=== PATIENT | male | born 1970 | race Caucasian/White ===

== ENCOUNTER 2017-06-26 09:29 | Emergency (ER) | payer OTHER ==
[~2017-06-26] VITALS: Ht 167.6 cm; Wt 78.0 kg
[2017-06-26 09:35] VITALS: Ht 167.6 cm; Wt 78.0 kg
[2017-06-26] MEDS ORDERED: METHYLPREDNISOLONE 125 MG INJ IM ONE (10:30)
[2017-06-26] MEDS ORDERED: DIPHENHYDRAMINE 25 MG CAP PO ONE (10:30)
[2017-06-26] MEDS ORDERED: FAMOTIDINE 20 MG TAB PO ONE (10:30)
[2017-06-26] MEDS ORDERED: AMOX1TAB10 PO (11:03)
[2017-06-26] MEDS ORDERED: BEN25 PO (11:03)
[2017-06-26] MEDS ORDERED: PRED20TA PO (11:03)
--- NOTE | 2017-06-26 11:48 | ERD ---
ER Documentation Chief Complaint Chief Complaint PT with L eye swelling since last night, denies SOB. HPI 46-year-old male patient with no significant past medical history presents to the ED complaining of a left swollen eye and itchiness that started last night. States that his throat is also itchy but denies any dysphagia or odynophagia. Denies any fever, chills, nausea, vomiting, diarrhea, shortness of breath, chest pain. Denies taking any medications. Denies eating any new foods. States that he is allergic to pork but did not eat pork yesterday. Denies others having the same rash. Denies being bitten by an insect or spider. Denies any eye pain, vision loss, blurred vision, diplopia. No purulent discharge of bilateral eyes. No eye redness. Patient does not wear any glasses or contacts. ROS All systems reviewed and are negative except as per history of present illness. Medications Home Meds Active Scripts Diphenhydramine Hcl* (Benadryl*) 25 Mg Cap, 25 MG PO Q6 Y for ITCHING/RASH, #30 TAB Prov:SHARONA DUONG PA-C 06/26/17 Prednisone* (Prednisone*) 20 Mg Tab, 60 MG PO DAILY for 4 Days, TAB Prov:SHARONA DUONG PA-C 06/26/17 Amoxicillin/Potassium Clav (Amox-Clav 875-125 mg Tablet) 875-125 mg Tab, 1 TAB PO BID for 7 Days, #14 TAB Prov:SHARONA DUONG PA-C 06/26/17 Allergies Allergies: Uncoded Allergies: PORK (Allergy, Unknown, 06/26/17) PMhx/Soc Medical and Surgical Hx: pt denies Medical Hx, pt denies Surgical Hx History of Surgery: No Anesthesia Reaction: No Hx Alcohol Use: No Hx Substance Use: No Hx Tobacco Use: No Smoking Status: Never smoker Physical Exam Vitals Vital Signs Date Time Temp Pulse Resp B/P Pulse Ox O2 Delivery O2 Flow Rate FiO2 06/26/17 09:35 97.6 98 16 166/86 97 Physical Exam Const: [id number], well-nourished. In no acute distress. Head: Atraumatic, normocephalic Eyes: Normal Conjunctiva without injection. Slight preseptal swelling of the left eye and left eyelid. No warm to touch. No erythema. No purulent discharge. PERRLA. EOMI ENT: Normal external ear. Ear canal without erythema. Tympanic membrane pearly cantor without effusion or bulging. Nasal canal clear with normal turbinates. Moist oropharynx without tonsillar exudates. Non-erythematous pharynx. Uvula midline. No drooling. No trismus. Neck: No cervical midline tenderness. Full range of motion. No meningismus. No cervical lymphadenopathy. No JVD. Resp: Clear to auscultation bilaterally. No wheezing, rhonchi, rales, or crackles. No accessory muscle use. No retractions. Cardio: Regular rate and rhythm. No murmurs, rubs or gallops. Abd: Soft, non tender, non distended. Normal bowel sounds. No palpable masses. No rebound tenderness. No guarding. Negative McBurney's Point. Negative Ayala's Sign. Skin: Normal skin turgor. No petechiae or rashes Back: No midline tenderness. No CVA tenderness. Ext: No cyanosis, or edema. Distal pulses intact bilaterally. Neur: Awake and alert. Normal gait. Normal coordination. Cranial Nerves II- VII intact. Normal finger to nose. Muscle strength 5/5. Sensation intact. Psych: Normal Mood and Affect Results 24 hrs Current Medications Medications (Trade) Dose Ordered Sig/Dominique Route PRN Reason Start Time Stop Time Status Last Admin Dose Admin Methylprednisolone Sodium Succinate (Solu-Medrol) 125 mg ONCE ONCE IM 06/26/17 10:30 06/26/17 10:31 DC 06/26/17 10:42 Diphenhydramine HCl (Benadryl) 25 mg ONCE ONCE PO 06/26/17 10:30 06/26/17 10:31 DC 06/26/17 10:41 Famotidine (Pepcid) 20 mg ONCE ONCE PO 06/26/17 10:30 06/26/17 10:31 DC 06/26/17 10:41 Procedures/MDM 46-year-old male patient with no significant past medical history presents to the ED complaining of left eye swelling that started last night. Patient is afebrile and nontoxic-appearing. Patient's blood pressure is 166/86. Patient' s blood pressure was elevated (>120/80) but appears stable without evidence of hypertension emergency or urgency. The patient was counseled about the risks of hypertension and urged to pursue outpatient monitoring and therapy within a week with their primary care physician. Patient likely has anallergic reaction therefore patient was treated with Solu-Medrol 125 mg IM, Benadryl, Famotidine with improvement of his symptoms. Patient appears to have improvement with swelling of left eyelid. Patient is speaking in full sentences. No angioedema. No respiratory distress noted. No warmth to touch of the preseptal swelling however patient will be treated on outpatient basis with antibiotics and instructed to return in 2 days for reexamination. Patient's ocular symptoms have stabilized while they have been evaluated in the department and are appropriate for outpatient work up. Low suspicion for ruptured globe, papilledema, retinal detachment, periorbital cellulitis, acute angle closure glaucoma, deep space infection, iritis, traumatic hyphema, conjunctivitis, subconjunctival hemorrhage, corneal abrasion, corneal ulcer, pterygium, hypopyon, blepharitis, hordeolum, chalazion, or other emergent conditions. Discharge medications: Augmentin, Prednisone, Benadryl Follow up with primary care physician in 1-2 days for allergy testing. Instructed patient to return to the ED sooner for any worsening symptoms. Patient's questions were answered. Patient understood and agreed with discharge plan. Patient discharged stable. Departure Diagnosis: Primary Impression: Eye swelling, left Additional Impression: Irritated throat Condition: Stable Patient Instructions: Allergic Reaction, Other (General), Angelique-Orbital Cellulitis Referrals: COMMUNITY CLINICS YOU HAVE RECEIVED A MEDICAL SCREENING EXAM AND THE RESULTS INDICATE THAT YOU DO NOT HAVE A CONDITION THAT REQUIRES URGENT TREATMENT IN THE EMERGENCY DEPARTMENT. FURTHER EVALUATION AND TREATMENT OF YOUR CONDITION CAN WAIT UNTIL YOU ARE SEEN IN YOUR DOCTORS OFFICE WITHIN THE NEXT 1-2 DAYS. IT IS YOUR RESPONSIBILITY TO MAKE AN APPOINTMENT FOR FOLOW-UP CARE. IF YOU HAVE A PRIMARY DOCTOR --you should call your primary doctor and schedule an appointment IF YOU DO NOT HAVE A PRIMARY DOCTOR YOU CAN CALL OUR PHYSICIAN REFERRAL HOTLINE AT IF YOU CAN NOT AFFORD TO SEE A PHYSICIAN YOU CAN CHOSE FROM THE FOLLOWING [facility] CLINICS [facility] [address] [facility]. [facility] [address] [facility] [address] [facility]. [facility] [address] [facility]. [facility] [address] [facility]. [facility]. [address] [facility]. [facility] YOU HAVE RECEIVED A MEDICAL SCREENING EXAM AND THE RESULTS INDICATE THAT YOU DO NOT HAVE A CONDITION THAT REQUIRES URGENT TREATMENT IN THE EMERGENCY DEPARTMENT. FURTHER EVALUATION AND TREATMENT OF YOUR CONDITION CAN WAIT UNTIL YOU ARE SEEN IN YOUR DOCTORS OFFICE WITHIN THE NEXT 1-2 DAYS. IT IS YOUR RESPONSIBILITY TO MAKE AN APPOINTMENT FOR FOLOW-UP CARE. IF YOU HAVE A PRIMARY DOCTOR --you should call your primary doctor and schedule and appointment IF YOU DO NOT HAVE A PRIMARY DOCTOR YOU CAN CALL OUR PHYSICIAN REFERRAL HOTLINE AT . IF YOU CAN NOT AFFORD TO SEE A PHYSICIAN YOU CAN CHOSE FROM THE FOLLOWING [facility] INSTITUTIONS: [facility] [address] [place] [address] [facility] [address] [place] [address] [facility] [address] [place] [address] [facility] Hours: Mon - Fri 9:00 AM - 5:00 PM Additional Instructions: Seguimiento en 1-2 walter para el reexamen de la hinchazn alrededor de triana marbin y la remisin para la prueba de la alergia Regrese a estas instalaciones si no se mejora mary anne esperbamos o mary anne le alexanderjimos. SHARONA DUONG PA-C Jun 26, 2017 11:47 SHARONA DUONG PA-C Jun 26, 2017 11:47
== END 2017-06-26 11:30 | disposition home or self-care (01) ==
LOC: FTE 09:29 → MERGE 09:29 → FTE 11:30
DX: H02.846 Edema of left eye, unspecified eyelid (principal)
CPT/HCPCS: 96372; J2930; Z7502; Z7610